=== PATIENT | male | born 1985 | race Two or more races ===

== ENCOUNTER → 2017-08-06 | Outpatient (CLI) | payer OTHER ==
--- NOTE | 2017-08-06 14:40 | Diagnostic Imaging Report ---
PROCEDURE:URINARY BLADDER ULTRASOUND COMPARISON:None. INDICATIONS:DYSURIA CONCLUSION: Please refer to the renal ultrasound performed at the same date and time for full dictated report. Ernst Smith M.D. Dictated by: Ernst Smith M.D. on 08/06/2017 at 14:42 Electronically approved by: Ernst Smith M.D. on 08/06/2017 at 14:42
--- NOTE | 2017-08-06 14:40 | Diagnostic Imaging Report ---
PROCEDURE:US RETROPERITONEAL ( KIDNEY ). COMPARISON:None. INDICATIONS:DYSURIA TECHNIQUE: Barbosa-scale and color sonographic images of the bilateral kidneys and bladder where obtained in transverse and longitudinal planes. FINDINGS: RIGHT KIDNEY: 10.0 cm, cortex 1.7 cm Cysts: None Solid masses: None Stones: None Hydronephrosis: None Echogenicity: Normal LEFT KIDNEY: 9.6 cm, cortex 1.9 cm Cysts: None Solid masses: None Stones: None Hydronephrosis: None Echogenicity: Normal Bladder: Unremarkable. No focal lesions. Bilateral ureteral jets are identified. Prevoid bladder volume: 514.96 mL. Post void bladder volume: None Prostate: 3.3 x 3.2 x 4.1 cm (estimated volume 22.2 mL, upper limit of normal. CONCLUSION: 1. Normal bilateral renal size and echogenicity. No hydronephrosis, stones, or solid masses. 2. No significant postvoid residual. Ernst Smith M.D. Dictated by: Ernst Smith M.D. on 08/06/2017 at 14:42 Electronically approved by: Ernst Smith M.D. on 08/06/2017 at 14:42
== END ==
LOC: US 13:44
PROVIDERS: ATTEND Internal Medicine
DX: R30.0 Dysuria (principal)
CPT/HCPCS: 76770; 76857

== ENCOUNTER → 2017-09-27 | Outpatient (CLI) | payer OTHER ==
--- NOTE | 2017-09-27 11:28 | Diagnostic Imaging Report ---
PROCEDURE:X-RAY RIGHT KNEE, ONE OR TWO VIEWS COMPARISON:None. INDICATIONS:RIGHT KNEE PAIN FINDINGS: 2 views of the right knee (AP and lateral). Joint spaces are maintained. No fracture or dislocation. Minimal sharpening of the tibial spines and tiny patellofemoral osteophytes. The soft tissues are unremarkable. CONCLUSION: Minimal osteoarthritis. Dictated by: Zackary Rubin M.D. on 09/27/2017 at 11:33 Electronically approved by: Zackary Rubin M.D. on 09/27/2017 at 11:33
== END ==
LOC: RAD 10:06
PROVIDERS: ATTEND Internal Medicine
DX: M25.561 Pain in right knee (principal)

== ENCOUNTER → 2021-03-13 | Outpatient (CLI) | payer OTHER | LOC: US 12:28 | PROVIDERS: ATTEND Family Medicine | DX: E04.9 Nontoxic goiter, unspecified (principal) | CPT/HCPCS: 76536 ==